=== PATIENT | male | born 2000 | race Two or more races ===

== ENCOUNTER 2021-01-29 23:57 | Emergency (ER) | payer SELFPAY ==
[2021-01-30] MEDS ORDERED: CEPHALEXIN500 MG PO (00:50)
== END 2021-01-30 00:49 | disposition home or self-care (01) ==
LOC: ER1 23:57
DX: S71.112A Laceration without foreign body, left thigh, initial encounter (principal); W45.8XXA Other foreign body or object entering through skin, initial encounter
CPT/HCPCS: 90471; 90715; 99283